=== PATIENT | female | born 1975 ===

== ENCOUNTER 2017-07-23 06:00 | Day surgery (SDC) | payer OTHER ==
[~2017-07-23 06:00] MED LIST: LOSARTAN-HCTZ1 EAC1 PO; PROCARDIA90 MG/BLIS PO; TAMOXIFEN CITRA20 MG PO
== END 2017-07-23 13:25 | disposition home or self-care (01) ==
LOC: CIR.AMB 06:00
DX: C50.912 Malignant neoplasm of unspecified site of left female breast (principal); Z90.13 Acquired absence of bilateral breasts and nipples